=== PATIENT | female | born 1995 | race American Indian/Alaskan Native ===

== ENCOUNTER 2021-03-23 00:33 | Emergency (ER) | payer OTHER ==
--- NOTE | 2021-03-23 02:02 | Emergency Department Report ---
ED General Adult HPI - General Stated complaint: POSS CHEMICAL BURN/HAND Time Seen by Provider: 03/23/21 01:59 - History of Present Illness Initial comments: 25-year-old female that emerge department complaining of irritation to her hands after she was using a hair dye product with a lot of hydrogen peroxide and states that she felt some burning and tingling to her hand as she was using the department without gloves as was recommended. States that she washed her hands profusely and [place] the [place] from her symptoms had resolved but her family told her to come to the emergency department to get checked to make sure she did not need any special burn cream. This present time she is asymptomatic with no visual changes to her hand nails or arms. Reports no current symptoms Quality: burning Consistency: now resolved (Now resolved) Improves with: none Worsens with: none ED Review of Systems ROS: Stated complaint: POSS CHEMICAL BURN/HAND Other details as noted in HPI Comment: All other systems reviewed and negative ED Physical Exam - General General appearance: alert, in no apparent distress - Head Head exam: Present: atraumatic, normocephalic - Eye Eye exam: Present: normal appearance - ENT ENT exam: Present: mucous membranes moist - Neck Neck exam: Present: normal inspection - Respiratory Respiratory exam: Present: normal lung sounds bilaterally. Absent: respiratory distress - Cardiovascular Cardiovascular Exam: Present: regular rate, normal rhythm. Absent: systolic murmur, diastolic murmur, rubs, gallop - GI/Abdominal GI/Abdominal exam: Present: soft, normal bowel sounds - Extremities Exam Extremities exam: Present: normal inspection - Back Exam Back exam: Present: normal inspection - Neurological Exam Neurological exam: Present: alert, oriented X3 - Psychiatric Psychiatric exam: Present: normal affect, normal mood - Skin Skin exam: Present: warm, dry, intact, normal color. Absent: rash Critical care attestation.: If time is entered above; I have spent that time in minutes in the direct care of this critically ill patient, excluding procedure time. ED Disposition Clinical Impression: Chemical exposure Disposition: 01 HOME / SELF CARE / HOMELESS Is pt being admited?: No Does the pt Need Aspirin: No Condition: Stable Referrals: PRIMARY CARE, [Primary Care Provider] - 3-5 Days
[2021-03-23 02:28] VITALS: BP 118/62
== END 2021-03-23 02:30 | disposition home or self-care (01) ==
LOC: ED 00:33
DX: Z77.098 Contact with and (suspected) exposure to other hazardous, chiefly nonmedicinal, chemicals (principal)
CPT/HCPCS: 99281